=== PATIENT | male | born 1995 | race Hispanic/Latino ===

== ENCOUNTER 2020-02-14 15:54 | Emergency (ER) | payer MEDICAID, SELFPAY ==
[2020-02-14] MEDS ORDERED: LIDOCAINE HCL 2% (MOUTH-THROAT) 15 ML UD MT ONE (16:17)
[2020-02-14] MEDS ORDERED: IBUPROFEN SUSP 100 MG/5 ML UD PO ONE (16:17)
--- NOTE | 2020-02-14 16:22 | ED.PDOC ---
History of Present Illness - General Chief Complaint: Fever Stated Complaint: throat pain Time Seen by Provider: 02/14/20 16:03 Source: patient - History of Present Illness Initial Comments: 24 YO male who presents with CC of sore throat and fever. Onset of illness 4 days ago, persistent, reports as mild severity sore pain to the back of his throat and both tonsils with some radiation to the right side of the neck and the right ear, waxes and wanes, at worst 6/10 in severity, drinking warm teas, OTC meds with modest relief of pain but reports persistence of fevers and of redness and white plaques to the back of his throat and tonsils for the past 4 days. He has also taken amoxicillin (obtained from [place]) 500 mg every 8 hours for the past 3 days without any relief. Reports T-max of 102.9F at home. Able to drink liquids but poor appetite for solid foods given his pain. Denies any chest pain, dyspnea, cough, abdominal pain, nausea, vomiting, diarrhea, urinary symptoms, rash, headache. Reports history of similar symptoms in the past, which usually resolve with antibiotics - last episode was 1 year ago. No known recent sick contacts. He does report his symptoms began 1 day after getting a tooth pulled at the dentist. Allergies/Adverse Reactions: Allergies NO KNOWN ALLERGY Allergy (Verified 02/14/20 16:14) Home Medications: Ambulatory Orders RX: Cefdinir [Omnicef] 600 mg PO DAILY 9 Days #18 cap 02/14/20 Review of Systems - Review of Systems Review of Systems: 02/14/20 16:22 as per HPI All other Systems: Reviewed and Negative Family Medical History - Family History Mother Family History: No Known Physical Exam - Physical Exam General Appearance: Alert, Comfortable, No apparent distress Eye Exam: bilateral normal Ears, Nose, Throat: hearing grossly normal, pharyngeal erythema, tonsillar exudate, tonsillar swelling - 2+ BL, equal, erythematous with scattered white plaques to both tonsils and to posterior OP, no evidence of peritonsillar abscesses Neck: full range of motion, supple, lymphadenopathy (R) - BL anterior tender cervical AL, approx 1 cm on Right side and 0.5 cm on Left side, lymphadenopathy (L) Respiratory: chest non-tender, lungs clear, normal breath sounds, no respiratory distress, no accessory muscle use Cardiovascular/Chest: normal peripheral pulses, no edema, no gallop, no JVD, no murmur, tachycardia Peripheral Pulses: radial,right: 2+, radial,left: 2+ Gastrointestinal/Abdominal: non tender, soft, no organomegaly Back Exam: normal inspection, no CVA tenderness, no vertebral tenderness Extremity: normal range of motion, non-tender, normal inspection, no pedal edema, no calf tenderness 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 Consider also viral etiologies/flu/mono. -Fever of 102.9F on arrival, slightly tachycardic, remainder of vitals stable, patient NAD -Obtain flu and strep swabs, mono screen -For pain: Viscous lidocaine 15 mL p.o., ibuprofen 600 mg p.o. 02/14/20 16:59 -Patient remained stable, little improvement in pain noted. Strep, flu, mono are all negative. Was discussing the results with the patient and he now mentions for the first time that he has been having a muffled voice since yesterday and is having difficulty managing secretions and swallowing. Given this, will need to evaluate for retropharyngeal abscess. Obtain CBC, BMP, blood cultures, CT soft tissue neck. 02/14/20 18:42 -CT scan shows the enlarged bilateral tonsils without evidence of peritonsillar or retro-pharyngeal abscesses. Findings are consistent with acute tonsillitis. -Labs reveal mild leukocytosis with slight left shift, otherwise unremarkable. -Patient remains stable, vitals WNL. Reports improving pain. Exam unchanged. -Discussed diagnosis of acute tonsillopharyngitis. Given the appearance along with high fevers and leukocytosis with left shift, I am concerned for bacterial etiology. We will have the patient stop taking his home amoxicillin. We will give a dose of Rocephin 1 g IV in the ED and sent home on Cefdinir 600 mg p.o. daily for 10 days total treatment. -DC to home in good condition, return warnings discussed at length. Follow-up closely with PCP. Work note given. Jerry Del Valle MD Billing #[id number] 02/14/20 16:22 STREP A SCREEN CULTURE Stat 02/14/20 16:58 Telemetry .ONCE Sodium Chloride 0.9% (Flush) [Saline Flush Syringe] 10 ml IV PRN PRN 02/14/20 16:59 Hold Metformin x 48Hrs [id number] 02/14/20 17:18 BLOOD CULTURE Stat 02/14/20 18:28 cefTRIAXone SODIUM [Rocephin] 1 gm Sodium Chl 0.9% 50Ml Min-Bag+ [NS 50ml MINI-BAG+] 50 ml IVPB ONCE Laboratory Results - last 24 hr 02/14/20 02/14/20 02/14/20 16:22 16:25 16:43 WBC 11.1 H RBC 5.06 Hgb 15.0 Hct 43.7 MCV 86.4 MCH 29.6 MCHC 34.2 RDW 12.8 Plt Count 162 MPV 9.6 Absolute Neuts (auto) 8.40 H Absolute Lymphs (auto) 0.80 L Absolute Monos (auto) 1.90 H Absolute Eos (auto) 0.00 Absolute Basos (auto) 0.00 Neutrophils % 75.3 Lymphocytes % 6.9 L Monocytes % 17.4 H Eosinophils % 0.0 L Basophils % 0.4 Sodium Potassium Chloride Carbon Dioxide Anion Gap BUN Creatinine BUN/Creatinine Ratio Random Glucose Serum Osmolality Calcium Monoscreen Negative Group A Strep Rapid Negative 02/14/20 16:43 WBC RBC Hgb Hct MCV MCH MCHC RDW Plt Count MPV Absolute Neuts (auto) Absolute Lymphs (auto) Absolute Monos (auto) Absolute Eos (auto) Absolute Basos (auto) Neutrophils % Lymphocytes % Monocytes % Eosinophils % Basophils % Sodium 131 L Potassium 3.6 Chloride 97 L Carbon Dioxide 22 Anion Gap 15.6 BUN 15 Creatinine 0.74 BUN/Creatinine Ratio 20.3 H Random Glucose 105 Serum Osmolality 263.9 L Calcium 8.5 Monoscreen Group A Strep Rapid Departure - Departure Clinical Impression: Tonsillopharyngitis Time of Disposition: 18:05 Disposition: Discharge to Home or Self Care Condition: Fair Departure Forms: ED Discharge - Pt. Copy, ED Discharge - Work Release, Patient Portal Self Enrollment Instructions: Sore Throat, Adult (DC) Diet: resume usual diet Activity: increase activity as tolerated Prescriptions: RX: Cefdinir [Omnicef] 600 mg PO DAILY 9 Days #18 cap Home Medications: Ambulatory Orders RX: Cefdinir [Omnicef] 600 mg PO DAILY 9 Days #18 cap 02/14/20 Additional Instructions: Remain well-hydrated and gradually advance her diet as tolerated. Take the antibiotics as directed and finish the full course even if well. Continue to take OTC medications for throat pain such as Chloraseptic sore throat spray, ibuprofen 600 mg every 6 hours, Tylenol 650 mg every 6 hours, warm liquids such as tea, warm salt water gargles, etc. Return to the ED if symptoms worsen or other concerning symptoms develop such as trouble breathing, unable to manage saliva/secretions, worsening muffled voice, or other concerning symptoms. Follow-up with your primary care doctor in the next 3 to 5 days for repeat evaluation is recommended or sooner as needed.
[2020-02-14] MEDS ORDERED: cefTRIAXone SODIUM 1 GM VIAL IM ONE (16:51)
[2020-02-14] MEDS ORDERED: SODIUM CHLORIDE 0.9% 1000ML 1,000 ML IVS ONE (16:58)
[2020-02-14] MEDS ORDERED: SODIUM CHLORIDE 0.9% (FLUSH) 10 ML SYG IV PRN (16:58)
[2020-02-14] MEDS ORDERED: cefTRIAXone SODIUM 1 GM in SODIUM CHL 0.9% 50ML MIN-BAG+ 50 ML IVPB ONE (18:28)
[2020-02-14 18:35] VITALS: O2SAT 97
--- NOTE | 2020-02-14 18:40 | CT ---
EXAM: Soft Tissue Neck w/Contrast CLINICAL INDICATION: 24-year-old male with sore throat COMPARISON: None. TECHNIQUE: CT neck soft tissues were performed following intravenous administration of contrast. Multiplanar reformatted images were provided. This exam was performed according to our departmental dose optimization program which includes use of automated exposure control, adjustment of the mA and/or kV according to patient size and/or use of iterative reconstruction technique. FINDINGS: Limited evaluation through the skull base reveals no acute intracranial abnormalities or abnormal post contrast enhancement. Diffusely enlarged and demonstrated appearance of the bilateral tonsils, RIGHT slightly greater than LEFT compatible with tonsillitis. No discrete hypoattenuation with rim enhancement is identified to suggest tonsillar or peritonsillar abscess. The peritonsillar fat planes and parapharyngeal spaces appear to be intact. The region of interest however is at least partially obscured by dental amalgam artifact. Prominent lymph nodes bilaterally on the RIGHT level IIb lymph node measuring 3 x 17 mm, likely reactive in etiology. The visualized vessels are patent and normal in caliber. Few additional small lymph nodes are scattered throughout the neck soft tissues bilaterally none of which are pathologically enlarged by CT measurement criteria. The bilateral parotid, bilateral submandibular and thyroid glands are within normal limits. The nasal cavity, posterior nasopharynx, oral cavity, oropharynx, larynx and hypopharynx are otherwise within normal limits without abnormal enhancement mass or mass effect. The airways are patent. Limited evaluation of the lung apices are clear. The osseous structures are within normal limits. IMPRESSION: Diffusely enlarged and demonstrated appearance of the bilateral tonsils, RIGHT slightly greater than LEFT compatible with tonsillitis as detailed above. Electronically signed by: Pauline Chappell MD 02/14/2020 6:38 PM CDT
[2020-02-14 19:13] VITALS: BP 133/77; TEMP 99.8
== END 2020-02-14 19:14 | disposition home or self-care (01) ==
LOC: ER 15:54
DX: J03.90 Acute tonsillitis, unspecified (principal); M54.2 Cervicalgia; R50.9 Fever, unspecified; D72.829 Elevated white blood cell count, unspecified
CPT/HCPCS: 36415; 70491; 80048; 85025; 86403; 87040; 87070; 87502; 87880; J0696; J7030; J7050